=== PATIENT | male | born 1955 | race Caucasian/White ===

== ENCOUNTER → 2017-11-18 | Outpatient (CLI) | payer OTHER | LOC: BMCIMAGING 14:25 | PROVIDERS: ATTEND Internal Medicine | DX: R05 Cough (principal); J44.9 Chronic obstructive pulmonary disease, unspecified ==

== ENCOUNTER 2018-07-28 12:05 | Day surgery (SDC) | payer OTHER ==
[2018-07-28] MEDS ORDERED: fentaNYL 100 MCG/2 ML INJ IVP ONE (12:09)
[2018-07-28] MEDS ORDERED: MIDAZOLAM 2 MG/2 ML VIAL IVP ONE (12:09)
[2018-07-28] MEDS ORDERED: NS 500 ML IV ONE (12:09)
[2018-07-28] MEDS ORDERED: BENZOCAINE UNIT DOSE SPRAY HURRICAINE MM ONE (12:09)
[2018-07-28] MEDS ORDERED: ATROPINE SULFATE 1 MG/10 ML SYR IVP ONE (12:09)
[2018-07-28 12:47] LABS: INR 1.06 (0.83-1.16)
--- NOTE | 2018-07-28 13:09 | PDANEPAE ---
ANE History of Present Illness AFib/flutter here for EVY/CV ANE Past Medical History - Cardiovascular History Hx Hypertension: Yes Hx Arrhythmias: Yes Hx Chest Pain: No Hx Coronary Artery / Peripheral Vascular Disease: No Hx CHF / Valvular Disease: No - Pulmonary History Hx COPD: No Hx Asthma/Reactive Airway Disease: No Hx Recent Upper Respiratory Infection: No Hx Oxygen in Use at Home: No Hx Sleep Apnea: No - Endocrine History Hx Diabetes: No ANE Review of Systems Review of Systems: - Exercise capacity Exercise capacity: >=4 METS ANE Patient History - Allergies Allergies/Adverse Reactions: Penicillins Allergy (Unknown, Verified 03/09/13 16:13) Sulfa (Sulfonamide Antibiotics) Allergy (Unknown, Verified 03/09/13 16:13) - Home Medications Home Medications: Lisinopril 05/05/14 [Last Taken 07/27/18 21:00] Eliquis 5 mg PO BID 07/28/18 [Last Taken 07/28/18 07:00] Fish Oil Concentrate Softgel PO DAILY 07/28/18 [Last Taken 07/27/18 07:00] Metoprolol Tartrate 25 mg PO BID 07/28/18 [Last Taken 07/28/18 07:00] - NPO status NPO Status: no food or drink >8 hours - Anes Hx Anes Hx: no prior problems - Smoking Hx Smoking Status: Never smoked - Alcohol Use Alcohol Use: Occasionally - Family Anes Hx Family Anes Hx: none ANE Labs/Vital Signs - Labs Result Diagrams: 07/28/18 12:36 - Vital Signs Height: 203 cm Weight: 104.3 kg ANE Physical Exam - Airway Neck exam: FROM Mallampati Score: Class 2 Mouth exam: normal dental/mouth exam - Pulmonary Pulmonary: no respiratory distress, clear to auscultation - Cardiovascular Cardiovascular: no murmur, rub, or gallop, irregularly irregular - ASA Status ASA Status: II ANE Anesthesia Plan Anesthesia Plan: GA with mask Total IV Anesthesia: Yes
[2018-07-28] MEDS ORDERED: PROPOFOL 200 MG/20 ML VIAL ONE (13:10)
--- NOTE | 2018-07-28 13:27 | PDHPUP ---
History & Physical Update H&P update statement: This history and physical update is based on an assessment of the patient which was completed after admission or registration (within 24 hours), but prior to the surgery/procedure. H&P update: H&P reviewed & patient examined, no change in patient's condition since H&P completed
--- NOTE | 2018-07-28 13:28 | PDTEE1 ---
EVY Cardioversion Procedure Procedure: electrical cardioversion, transesophageal echo Indications: atrial fibrillation Consent: signed and in chart Anticoagulation: eliquis Procedural Details: Pads were placed in anterior-posterior position. EVY probe was advanced and standard images obtained. There is no evidence of left atrial or left atrial appendage thrombus. Synchronized cardioversion attempt #1: 200J Results: normal sinus rhythm Conclusions: successful EVY cardioversion
--- NOTE | 2018-07-28 13:53 | ECHO ---
[email or web address] [place] [id number] Main: [phone] Fax: Transesophageal Echocardiography Name: FERNANDO LAGUNAS MR#: [id number] Study Date: 07/28/2018 Study Time: 01:07 PM Date of : 1955 Age: 62 year(s) Height: ( ) Weight: ( ) BSA: Gender: Male Examination: EVY Indication: pre-cardioversion Image Quality: Contrast: Requested by: Dante Galicia Heart Rate: Rhythm: BP: / Procedure Staff Block Hacker: Mariely Zambrano [facility] Reading Physician: Dante Galicia MD Requesting Provider: EVY Exam Details Conclusions: No thrombus within the left atrial appendage. Borderline LV systolic function ejection fraction 50%. Mild mitral regurgitation. Measurements: Chambers Valvular Assessment AV/MV Valvular Assessment TV/PV Normal Normal Normal Name Value Range Name Value Range Name Value Range Visual EF: 50 % Additional Measurements: Findings: Left Ventricle: The ejection fraction is visually estimated to be 50 %. Right Ventricle: Normal size right ventricle. Normal RV function. Left Atrium: No thrombus is noted in the left atrium. Left Atrial Appendage: Biphase constant PW-Doppler flow pattern. No thrombus in left appendage. Mitral Valve: The mitral valve is normal in appearance. Mild mitral valve regurgitation is present. Aortic Valve: Patient: FERNANDO LAGUNAS Study Date: 07/28/2018 Page 1 of 2 01:07 PM The aortic valve is tri-leaflet. Trivial to mild aortic valve regurgitation. Tricuspid Valve: Trivial tricuspid valve regurgitation. l1n (No Signature Object) Patient: FERNANDO LAGUNAS Study Date: 07/28/2018 Page 2 of 2 01:07 PM [id number]
--- NOTE | 2018-07-28 14:06 | POSTANESTH ---
Post Anesthetic Evaluation Cardiovascular Status: Normal, Stable, Similar to Pre-Op Cond Respiratory Status: Normal, Stable, Similar to Pre-op Cond. Level of Consciousness/Mental Status: Can Participate in Eval, Alert and Oriented Pain Control: Adequate, Prn Tx Ordered Nausea/Vomiting Control: Adequate, Prn Tx Ordered Complications Possibly Related to Anesthesia: None Noted
--- NOTE | 2018-07-29 06:55 | CPEKG ---
Test Reason : OPEN Blood Pressure : / mmHG Vent. Rate : 055 BPM Atrial Rate : 057 BPM P-R Int : 192 ms QRS Dur : 122 ms QT Int : 418 ms P-R-T Axes : 060 -50 037 degrees QTc Int : 400 ms Sinus rhythm Atrial premature complexes Nonspecific IVCD with LAD Confirmed by Max Steward ([id number]) on 07/29/2018 6:55:23 AM Referred By: Confirmed By:Max Steward
--- NOTE | 2018-07-29 06:55 | CPEKG ---
Test Reason : OPEN Blood Pressure : / mmHG Vent. Rate : 069 BPM Atrial Rate : 000 BPM P-R Int : 227 ms QRS Dur : 110 ms QT Int : 387 ms P-R-T Axes : 000 -49 048 degrees QTc Int : 415 ms Atrial fibrillation LAD, consider left anterior fascicular block Low voltage, extremity leads Confirmed by Max Steward ([id number]) on 07/29/2018 6:55:17 AM Referred By: Confirmed By:Max Steward
== END 2018-07-28 15:00 | disposition home or self-care (01) ==
LOC: FCATH 12:05
PROVIDERS: ATTEND Internal Medicine Interventional Cardiology
PROC: B246ZZ4 Ultrasonography of Right and Left Heart, Transesophageal (ICD-10-PCS; principal; 2018-07-28)
PROC: 5A2204Z Restoration of Cardiac Rhythm, Single (ICD-10-PCS; principal; 2018-07-28)
DX: I48.0 Paroxysmal atrial fibrillation (principal); I10 Essential (primary) hypertension; Z79.01 Long term (current) use of anticoagulants
CPT/HCPCS: J0461; J2704

== ENCOUNTER 2018-08-26 08:54 | Day surgery (SDC) | payer OTHER ==
[2018-08-26] MEDS ORDERED: fentaNYL 100 MCG/2 ML INJ IVP ONE (08:56)
[2018-08-26] MEDS ORDERED: ATROPINE SULFATE 1 MG/10 ML SYR IVP ONE (08:56)
[2018-08-26] MEDS ORDERED: MIDAZOLAM 2 MG/2 ML VIAL IVP ONE (08:56)
[2018-08-26] MEDS ORDERED: NS 500 ML IV ONE (08:56)
[2018-08-26 09:44] LABS: INR 1.1 (0.83-1.16); PROTIME(PATIENT) 14.4 SEC (12.0-15.0)
[2018-08-26] MEDS ORDERED: PROPOFOL 200 MG/20 ML VIAL ONE (10:33)
--- NOTE | 2018-08-26 10:36 | PDANEPAE ---
ANE History of Present Illness 62 year old in AF ANE Past Medical History - Cardiovascular History Hx Hypertension: Yes Hx Arrhythmias: Yes Hx Chest Pain: No Hx Coronary Artery / Peripheral Vascular Disease: No Hx CHF / Valvular Disease: No - Pulmonary History Hx COPD: No Hx Asthma/Reactive Airway Disease: No Hx Recent Upper Respiratory Infection: No Hx Oxygen in Use at Home: No Hx Sleep Apnea: No - Endocrine History Hx Diabetes: No ANE Review of Systems Review of systems is: negative Review of Systems: ANE Patient History - Allergies Allergies/Adverse Reactions: Penicillins Allergy (Unknown, Verified 03/09/13 16:13) Sulfa (Sulfonamide Antibiotics) Allergy (Unknown, Verified 03/09/13 16:13) - Home Medications Home Medications: Apixaban [Eliquis] 5 mg PO BID 07/28/18 [Last Taken 07/28/18 07:00] Metoprolol Tartrate [Lopressor 25 mg (*)] 12.5 mg PO BID 07/28/18 [Last Taken 07:00] Herbals/Supplements -Info Only 1 ea PO DAILY 08/25/18 [Last Taken Unknown] Lisinopril [Zestril 10 mg (*)] 10 mg PO DAILY 08/25/18 [Last Taken Unknown] Propafenone HCl Sr [Rythmol Sr 225mg (*)] 225 mg PO BID 08/25/18 [Last Taken Unknown] - Anes Hx Anes Hx: no prior problems - Smoking Hx Smoking Status: Never smoked ANE Labs/Vital Signs - Labs Result Diagrams: 08/26/18 09:20 - Vital Signs Height: 203 cm Weight: 104.3 kg ANE Physical Exam - Airway Neck exam: FROM Mallampati Score: Class 1 - Pulmonary Pulmonary: no respiratory distress - Cardiovascular Cardiovascular: regular rate and rhythym - ASA Status ASA Status: II ANE Anesthesia Plan Anesthesia Plan: MAC
[2018-08-26] MEDS ORDERED: LIDOCAINE 2% 2 ML INJ ONE (10:40)
--- NOTE | 2018-08-26 10:50 | PDCARD ---
Cardioversion Procedure Procedure: electrical cardioversion Indications: atrial fibrillation Consent: signed and in chart Anticoagulation: eliquis Procedural Details: Pads were placed in anterior-posterior position. Synchronized cardioversion attempt #1: 100J Synchronized cardioversion attempt #2: 200J Synchronized cardioversion attempt #3: 300J Conclusions: successful cardioversion Patient Problems: Problems Problem Status Onset Atrial fibrillation Acute
--- NOTE | 2018-08-26 10:53 | POSTANESTH ---
Post Anesthetic Evaluation Cardiovascular Status: Normal, Stable Respiratory Status: Normal, Stable, Requires Airway Assist Level of Consciousness/Mental Status: Mildly Sleepy, Arousable Pain Control: Adequate, Prn Tx Ordered Nausea/Vomiting Control: Adequate, Prn Tx Ordered Complications Possibly Related to Anesthesia: None Noted
--- NOTE | 2018-08-26 17:27 | CPEKG ---
Test Reason : OPEN Blood Pressure : / mmHG Vent. Rate : 057 BPM Atrial Rate : 000 BPM P-R Int : 062 ms QRS Dur : 129 ms QT Int : 407 ms P-R-T Axes : 000 -54 053 degrees QTc Int : 397 ms Atrial fibrillation Nonspecific IVCD with LAD Compared with 07/28/2018 AF now present Confirmed by Mayuri Murillo ([id number]) on 08/26/2018 5:26:44 PM Referred By: Confirmed By:Mayuri Murillo
--- NOTE | 2018-08-26 17:28 | CPEKG ---
Test Reason : OPEN Blood Pressure : / mmHG Vent. Rate : 046 BPM Atrial Rate : 000 BPM P-R Int : 208 ms QRS Dur : 126 ms QT Int : 454 ms P-R-T Axes : 051 -47 028 degrees QTc Int : 398 ms Sinus bradycardia Atrial premature complex Nonspecific IVCD with LAD Compared with 08/26/2018 sinus rhythm has been restored Confirmed by Mayuri Murillo ([id number]) on 08/26/2018 5:27:24 PM Referred By: Confirmed By:Mayuri Murillo
== END 2018-08-26 12:00 | disposition home or self-care (01) ==
LOC: FCATH 08:54
PROVIDERS: ATTEND Internal Medicine Cardiovascular Disease
PROC: 5A2204Z Restoration of Cardiac Rhythm, Single (ICD-10-PCS; principal; 2018-08-26)
DX: I48.91 Unspecified atrial fibrillation (principal); I27.20 Pulmonary hypertension, unspecified
CPT/HCPCS: J0461; J2704